=== PATIENT | male | born 1975 | race Caucasian/White ===

== ENCOUNTER 2025-05-23 19:17 | Emergency (ER) | payer OTHER ==
[2025-05-23 20:09] LABS: #Basophils 0.05 10x3/uL (0.0-0.2); #Eosinophils 0.27 10x3/uL (0.0-0.5); #Monocytes 0.67 10x3/uL (0.0-1.1); #Neutrophils 3.77 10x3/uL (1.5-8.4); %Basophils 0.8 % (0.0-2.0); %Eosinophils 4.1 % (0.0-6.0); %Lymphocytes 27.3 % (18.0-47.0); %Monocytes 10.2 % (0.0-10.0); %Neutrophils 57.4 % (40.0-75.0); Hematocrit 47.5 % (38.8-50.0); Hemoglobin 15.6 g/dL (13.5-17.5); Mean Corpuscular Hemoglobin 28.4 pg (27.0-33.0); Mean Corpuscular Volume 86.5 fL (81.2-95.1); Platelet Count 178 10x3/uL (150-450); Red Blood Cell (RBC) Count 5.49 10x6/uL (4.32-5.72); White Blood Cell (WBC) Count 6.56 10x3/uL (3.5-10.5)
[2025-05-23 20:32] LABS: Anion Gap 8 mmol/L (10-20); BUN (Urea Nitrogen) 18 mg/dL (8.4-25.7); Calc. Creatinine Clearance 0 mL/min (70-130); Calcium 8.6 mg/dL (7.8-10.44); Carbon Dioxide 27 mmol/L (22-29); Chloride 106 mmol/L (98-107); Glucose 118 mg/dL (70-105); Potassium 4.0 mmol/L (3.5-5.1); Sodium 137 mmol/L (136-145)
== END 2025-05-23 20:41 ==
LOC: CSHERS 19:17
DX: K64.5 Perianal venous thrombosis (principal)
CPT/HCPCS: 80048; 85025; 99283